=== PATIENT | female | born 1970 | race Caucasian/White ===

== ENCOUNTER 2020-07-11 00:54 | Emergency (ER) | payer SELFPAY ==
[~2020-07-11] VITALS: Ht 149.9 cm; Wt 77.6 kg
[2020-07-11 01:14] VITALS: BP 123/80
--- NOTE | 2020-07-11 01:15 | NUR ---
Patient discharged to home in stable condition. Written and verbal after care instructions given. Patient verbalizes understanding of instructions. Stressed follow up or return to ER for worsening s/s.
== END 2020-07-11 01:15 | disposition home or self-care (01) ==
LOC: ER 01:01
DX: R05 Cough (principal); Z88.8 Allergy status to other drugs, medicaments and biological substances
CPT/HCPCS: A4663